=== PATIENT | female | born 1935 | race Caucasian/White ===

== ENCOUNTER 2017-08-10 11:14 | Inpatient (IN) | payer OTHER, MEDICARE ==
[~2017-08-10] VITALS: Ht 154.9 cm; Wt 64.0 kg
[~2017-08-10 11:14] MED LIST: ALLOPURINOL100 MG PO; AMLODIPINE BESY10 MG PO; AMLODIPINE BESYL5 MG PO; ASPIRIN EC325 MG PO; ATENOLOL100 MG PO; ATORVASTATIN CA40 MG PO; BENAZEPRIL HCL40 MG PO; GLIPIZIDE XL5 MG PO; HUMALOG100 UNIT/1 SC; HYDROCHLOROTH12.5 M3 PO; HYDROCHLOROTHIA25 MG PO; LEVEMIR FL100 UNITS/ SC; LO-DOSE ASPIRIN81 M1 PO; NOVOLOG PE100 UNITS/ SC; PREDNISONE20 MG PO; PREDNISONE5 MG PO; VITAMIN D1000 INTUN PO; ZEMPLAR1 MCG PO
[2017-08-10 13:06] LABS: HEMATOCRIT 34.7 % (36.0-46.0); MCH 28.6 PG (29.0-34.0); MCHC 32.6 G/DL (30.0-36.0); MCV 87.8 FL (83-99); MEAN PLAT.VOLUME 11.4 uM^3 (9.5-12.4); PLATELET COUNT 230 K/uL (156-360); RBC DIS.WIDTH-CV 15.2 % (11.8-14.6); RED BLOOD COUNT 3.95 M/uL (3.80-5.20); WHITE BLOOD COUNT 13.6 K/uL (4.1-10.2)
[2017-08-10 13:14] LABS: CHLORIDE 110 mEq/L (99-109); POTASSIUM 3.9 mEq/L (3.7-5.4); SODIUM 143 mEq/L (136-147)
[2017-08-10 13:16] LABS: GLUCOSE 179 mg/dL (70-99)
[2017-08-10 13:17] LABS: ANION GAP 13 MEQ/L (2-14)
[2017-08-10 13:20] LABS: GFR ESTIMATE (CALCULATED) 33 mL/min/
[2017-08-10 13:21] LABS: UREA NITROGEN (BUN) 43 mg/dL (9-23)
[2017-08-10 16:00] LABS: ADD MIUA? NO; BILIRUBIN NEGATIVE; BLOOD NEGATIVE; COLOR STRAW ((YELLOW)); GLUCOSE (STRIP) NEGATIVE; KETONES NEGATIVE; LEUKOCYTES NEGATIVE; NITRITE NEGATIVE; PROTEIN (STRIP) NEGATIVE; SPECIFIC GRAVITY 1.013 (1.000-1.030); UROBILINOGEN 0.2 MG/DL (0.2-1.0)
[2017-08-10 17:35] LABS: POINT-OF-CARE METER ID UU13113747
[2017-08-10] MEDS ORDERED: PREDNISONE1 MG PO (18:46)
[2017-08-10 22:00] VITALS: BP 164/79
[2017-08-10 22:03] VITALS: BP 164/79
[2017-08-10 22:30] VITALS: BP 147/71
[2017-08-10 23:00] VITALS: BP 127/68
[2017-08-10 23:24] LABS: METH RESISTANT S AUREUS PCR NEGATIVE (NEGATIVE); PROBE CHECK PASS; SPECIMEN PROCESSING CONTROL PASS
[2017-08-11] VITALS (16 sets, daily range): BP systolic 88–155; BP diastolic 48–94
[2017-08-11 00:13] LABS: POINT-OF-CARE METER ID UU13113748
[2017-08-11 06:36] LABS: POINT-OF-CARE METER ID UU13113731; POINT-OF-CARE USER ID LABHNS84
[2017-08-11 08:52] LABS: EOSINOPHIL (%) 4.1 % (0-5); EOSINOPHIL COUNT 0.4 K/uL (0-0.3); HEMATOCRIT 30.9 % (36.0-46.0); IMMATURE GRANULOCYTE (%) 0.4 % (0.0-0.7); INSTRUMENT ABS NEUTROPHIL CT 6.5 K/uL; LYMPHOCYTE COUNT 1.4 K/uL (1.0-2.8); MCH 29.2 PG (29.0-34.0); MCV 88.5 FL (83-99); MEAN PLAT.VOLUME 10.5 uM^3 (9.5-12.4); MONOCYTE (%) 7.6 % (3-12); MONOCYTE COUNT 0.7 K/uL (0-0.8); NEUTROPHIL (%) 72.4 % (45-76); NEUTROPHIL COUNT 6.5 K/uL (1.8-6.4); PLATELET COUNT 192 K/uL (156-360); RBC DIS.WIDTH-CV 15.4 % (11.8-14.6); RBC DIS.WIDTH-SD 49.9 % (39-53); RED BLOOD COUNT 3.49 M/uL (3.80-5.20)
[2017-08-11 09:11] LABS: ANION GAP 12 MEQ/L (2-14); CHLORIDE 107 MEQ/L (99-109); POTASSIUM 4.1 MEQ/L (3.7-5.4); SAMPLE HEMOLYSIS CHECK 0; SAMPLE ICTERIC CHECK 0; SAMPLE LIPEMIA CHECK 0; SODIUM 141 MEQ/L (136-147); TOTAL BILIRUBIN 0.7 MG/DL (0.0-1.0)
[2017-08-11 09:17] LABS: ALKALINE PHOSPHATASE 84 IU/L (3-129); GFR ESTIMATE (CALCULATED) 51 mL/min/; GLUCOSE 146 mg/dL (70-99); UREA NITROGEN (BUN) 30 mg/dL (9-23)
[2017-08-11 13:14] LABS: POINT-OF-CARE METER ID UU13113731
[2017-08-12 03:25] VITALS: BP 127/60
[2017-08-12 06:15] LABS: POINT-OF-CARE METER ID UU14117124
[2017-08-12 07:52] VITALS: BP 135/98
[2017-08-12 11:24] LABS: POINT-OF-CARE METER ID UU14188577
[2017-08-12 16:41] VITALS: BP 148/69
[2017-08-12 20:20] VITALS: BP 134/70
[2017-08-13 00:22] VITALS: BP 125/85
[2017-08-13 04:24] VITALS: BP 132/68
[2017-08-13 06:19] LABS: POINT-OF-CARE METER ID UU14188577
[2017-08-13 08:19] VITALS: BP 127/81
[2017-08-13 11:39] VITALS: BP 100/67
== END 2017-08-13 15:30 | DRG 536 ==
LOC: EME 11:14 → EDOF 17:30 → 4WEST 17:30 → ENRESERV 17:31 → 4WEST 21:51 → ENRESERV 08-11 11:14 → 3EAST 08-11 14:21
PROVIDERS: Emergency Medicine; Surgery
DX: S32.402A Unspecified fracture of left acetabulum, initial encounter for closed fracture (principal); S22.49XA Multiple fractures of ribs, unspecified side, initial encounter for closed fracture; S42.212A Unspecified displaced fracture of surgical neck of left humerus, initial encounter for closed fracture; W10.9XXA Fall (on) (from) unspecified stairs and steps, initial encounter; M31.6 Other giant cell arteritis; I12.9 Hypertensive chronic kidney disease with stage 1 through stage 4 chronic kidney disease, or unspecified chronic kidney disease; N18.4 Chronic kidney disease, stage 4 (severe); E78.5 Hyperlipidemia, unspecified; E11.22 Type 2 diabetes mellitus with diabetic chronic kidney disease; D64.9 Anemia, unspecified; I35.0 Nonrheumatic aortic (valve) stenosis; M81.0 Age-related osteoporosis without current pathological fracture; M10.9 Gout, unspecified; I77.6 Arteritis, unspecified; I48.91 Unspecified atrial fibrillation; I25.10 Atherosclerotic heart disease of native coronary artery without angina pectoris; D69.1 Qualitative platelet defects; K44.9 Diaphragmatic hernia without obstruction or gangrene; H54.0 Blindness, both eyes; M19.90 Unspecified osteoarthritis, unspecified site; K81.1 Chronic cholecystitis; Z79.4 Long term (current) use of insulin; Z75.1 Person awaiting admission to adequate facility elsewhere; Z79.82 Long term (current) use of aspirin; Z86.718 Personal history of other venous thrombosis and embolism; Z80.3 Family history of malignant neoplasm of breast; Z82.49 Family history of ischemic heart disease and other diseases of the circulatory system
CPT/HCPCS: 70450; 71010; 71250; 73030; 73502; 74176; 80048; 80053; 81003; 82948; 85025; 85027; 87641; 93005; 93306; 97530 GP; 99281; 99285; J1644; J1815; J2405; J3010; J7030; J7120; J7512; S0028